=== PATIENT | male | born 1995 | race African-American/Black ===

== ENCOUNTER 2017-10-25 03:32 | Emergency (ER) | payer OTHER ==
[~2017-10-25] VITALS: Ht 180.3 cm; Wt 72.7 kg
[2017-10-25 05:17] VITALS: BP 127/67
== END 2017-10-25 05:55 | disposition home or self-care (01) ==
LOC: ER 03:33
DX: F10.129 Alcohol abuse with intoxication, unspecified (principal); F12.90 Cannabis use, unspecified, uncomplicated; Y90.9 Presence of alcohol in blood, level not specified
CPT/HCPCS: 99284